=== PATIENT | female | born 1960 | race Caucasian/White ===

== ENCOUNTER → 2018-12-28 | Outpatient (CLI) | payer OTHER ==
[2015-06-11 07:18] VITALS: BP 153/88
[~2018-12-28] MED LIST: ALBU0.63 NEB; ALBU2.5V8 IH; ALPR2TAB2 PO; AZIT250T6 PO; CARI350T14 PO; DICL1PAT14 TP; ESTR0.5T PO; EZET10TA18 PO; FENO145T32 PO; FLUO20CA8 PO; FLUT1DIS3 IH; ISON300T9 PO; LISI10TA2 PO; LORA0.5T96 PO; MELO7.5T29 PO; MULT-208 PO; OLAN5TAB9 PO; ONDA4TAB10 PO; PHEN37.598 PO; PRED20TA PO; PROG100C2 PO; RANI150T2 PO; TRAM50TA PO
--- NOTE | 2018-12-28 15:47 | RAD ---
DATE: 05/30/2019 EXAM: MAMMO LYUDMILA SCREENING BILATERAL HISTORY: Routine screening COMPARISON: 12/25/2014 This study was interpreted with the benefit of Computerized Aided Detection (CAD). Breast Density: HETERO The breast parenchyma is heterogenously dense, which could reduce sensitivity of mammography. Breast parenchyma level C. FINDINGS: 2-D and 3-D tomosynthesis imaging was performed in CC and MLO projections. There is an oval-shaped smooth nodule in the medial aspect of the left breast which is unchanged. 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 No new or enlarging breast densities are seen. Scattered microcalcifications are stable suggesting a benign etiology. IMPRESSION: Stable mammograms without evidence of malignancy. BI-RADS CATEGORY: 2 BENIGN FINDING(S) RECOMMENDED FOLLOW-UP: 12M 12 MONTH FOLLOW-UP PQRS compliance statement: Patient information was entered into a reminder system with a target due date for the next mammogram. Mammography is a sensitive method for finding small breast cancers, but it does not detect them all and is not a substitute for careful clinical examination. A negative mammogram does not negate a clinically suspicious finding and should not result in delay in biopsying a clinically suspicious abnormality. "Our facility is accredited by the [employer] Mammography Program."
== END | disposition home or self-care (01) ==
LOC: MAMMO 14:16
PROVIDERS: ATTEND Physician Assistant Medical
DX: Z12.31 Encounter for screening mammogram for malignant neoplasm of breast (principal)
CPT/HCPCS: 77063; 77067

== ENCOUNTER → 2019-05-24 | Outpatient (CLI) | payer OTHER ==
[2015-06-11 07:18] VITALS: BP 153/88
[~2019-05-24] MED LIST changes: +PROG100C10 PO; -PROG100C2 PO
[2019-05-24 20:22] LABS: ESTRADIOL LEVEL 6.6 pg/mL (.); LUTEINIZING HORMONE 51.4 mIU/mL (.)
[2019-05-24 21:18] LABS: FSH 96.7 mIU/mL (.); PROGESTERONE <0.1 ng/mL (.)
== END | disposition home or self-care (01) ==
LOC: LAB 10:21
PROVIDERS: ATTEND Obstetrics & Gynecology
DX: N95.1 Menopausal and female climacteric states (principal)
CPT/HCPCS: 36415; 82670; 83001; 83002; 84144

== ENCOUNTER → 2021-07-16 | Outpatient (CLI) | payer OTHER ==
[2015-06-11 07:18] VITALS: BP 153/88
[~2021-07-16] MED LIST changes: -DICL1PAT14 TP; +DICL1PAT35 TP; -EZET10TA18 PO; +EZET10TA20 PO; +FLUO20CA20 PO; -FLUO20CA8 PO; +LISI10TA16 PO; -LISI10TA2 PO; +LORA0.5T21 PO; -LORA0.5T96 PO; +OLAN5TAB67 PO; -OLAN5TAB9 PO
--- NOTE | 2021-07-16 12:44 | RAD ---
EXAM: XR LT TOE 2+ VIEWS 07/16/2021 11:35 AM CLINICAL INDICATION: Stubbed first toe COMPARISON: None TECHNIQUE: 3 views of the left great toe. FINDINGS: There is a nondisplaced predominantly transverse fracture of the great toe distal phalanx. No intra-articular extension. Fracture margins are slightly indistinct. There is no other acute abno rmality. Alignment is normal. No focal soft tissue abnormality. IMPRESSION: Nondisplaced fracture the great toe distal phalanx, possibly subacute. Electronically signed by: Wendi Jeffries MD (07/16/2021 12:42 PM) [id number]
== END ==
LOC: RAD 11:30
PROVIDERS: ATTEND Physician Assistant Medical
DX: S92.425A Nondisplaced fracture of distal phalanx of left great toe, initial encounter for closed fracture (principal); X58.XXXA Exposure to other specified factors, initial encounter; Y93.89 Activity, other specified; Y92.89 Other specified places as the place of occurrence of the external cause; Y99.8 Other external cause status
CPT/HCPCS: 73660